=== PATIENT | female | born 1980 | race Two or more races ===

== ENCOUNTER → 2024-12-13 | Outpatient (CLI) | payer MEDICARE, MEDICAID, SELFPAY ==
[2024-12-13 10:11] LABS: Collection Type, Urine Clean Catch
[2024-12-13 10:32] LABS: Basophils % (Auto) 0 % (0-2.5); Eosinophils # (Auto) 0.1 Thou/mm3 (0.0-0.5); Eosinophils % (Auto) 1 % (0-10); Hematocrit 35.7 % (36.0-46.0); Hemoglobin 12.3 g/dL (12.0-16.0); Immature Granulocytes % (Auto) 0 % (0-0); Immature Granulocytes Auto 0.03 Thou/mm3 (0.00-0.00); Lymphocytes # (Auto) 1.8 Thou/mm3 (1.0-4.8); Lymphocytes % (Auto) 23 % (10-50); Mean Corpuscular HGB Conc 34.5 g/dl (31.0-37.0); Mean Corpuscular Hemoglobin 31.4 pg (25.0-35.0); Mean Corpuscular Volume 91 fL (80-100); Monocytes # (Auto) 0.7 Thou/mm3 (0.0-0.8); Monocytes % (Auto) 9 % (0-12); Neutrophils # (Auto) 5.3 Thou/mm3 (1.8-7.7); Neutrophils % (Auto) 67 % (37-80); Nucleated Red Blood Cell % 0 /100 WBC (0); Platelet Count 167 Thou/mm3 (140-440); RDW Standard Deviation 43.1 fL (36.4-46.3); Red Blood Count 3.92 Miln/mm3 (4.00-5.20)
[2024-12-13 10:48] LABS: Albumin, Serum 4.1 gm/dL (3.5-5.0); Anion Gap 11 (7-16); BUN/Creatinine Ratio 15 Ratio (12-20); Blood Urea Nitrogen 17 mg/dL (9-23); Carbon Dioxide 25.2 mMol/L (20.0-31.0); Chloride 103 mMol/L (98-107); Creatinine (Component) 1.1 mg/dL (0.6-1.3); Glucose 158 mg/dL (74-106); Osmolality,Calculated 282 (275-295); Phosphorous 1.4 mg/dL (2.4-5.1); Sodium 139 mMol/L (136-145); eGFR > 60 See Note
[2024-12-13 10:49] LABS: Glucose Estimated Average 258 mg/dL (80-131); Hemoglobin A1C 10.6 % Hgb (4.8-6.0)
[2024-12-13 10:56] LABS: Bacteria,Urine 1+; Bilirubin,Urine Negative (Negative); Blood,Urine Negative (Negative); Clarity,Urine Turbid (Clear/Hazy); Color,Urine Colorless (Lt Yel-Yel); Culture Indicated,Urine Contaminated; Glucose, Urine Negative (Negative); Ketones,Urine Trace (Negative); Leukocyte Esterase,Urine Positive (Negative); Nitrite,Urine Negative (Negative); Protein,Urine Negative (Neg - Trace); RBC,Urine 3 /hpf (0-3); Specific Gravity,Urine 1.006 (1.001-1.035); Squamous Epithelial Cell,Urine 14 /hpf (0-5); Urobilinogen,Urine Negative mg/dL (0.0-1.0); WBC,Urine 3 /hpf (0-5)
[2024-12-20 06:53] LABS: Tacrolimus,highly sensitive* 8.4 mcg/L (5.0-20.0)
== END | disposition home or self-care (01) ==
LOC: COPL 09:43
PROVIDERS: PCP Family Medicine; Referring Provider Internal Medicine Nephrology; Visit Provider Internal Medicine Nephrology
DX: Z94.0 Kidney transplant status (principal); E11.9 Type 2 diabetes mellitus without complications; E83.52 Hypercalcemia
CPT/HCPCS: 36415; 80069; 80197; 81001; 83036; 85025

== ENCOUNTER → 2024-12-26 | Outpatient (CLI) | payer MEDICARE, MEDICAID, SELFPAY ==
[2024-12-26 08:11] LABS: Collection Type, Urine Clean Catch
[2024-12-26 08:38] LABS: Basophils % (Auto) 0 % (0-2.5); Eosinophils # (Auto) 0.1 Thou/mm3 (0.0-0.5); Eosinophils % (Auto) 2 % (0-10); Hematocrit 36.2 % (36.0-46.0); Hemoglobin 12.5 g/dL (12.0-16.0); Immature Granulocytes % (Auto) 1 % (0-0); Immature Granulocytes Auto 0.06 Thou/mm3 (0.00-0.00); Lymphocytes # (Auto) 1.8 Thou/mm3 (1.0-4.8); Lymphocytes % (Auto) 27 % (10-50); Mean Corpuscular HGB Conc 34.5 g/dl (31.0-37.0); Mean Corpuscular Hemoglobin 31.6 pg (25.0-35.0); Mean Corpuscular Volume 91 fL (80-100); Monocytes # (Auto) 0.6 Thou/mm3 (0.0-0.8); Monocytes % (Auto) 10 % (0-12); Neutrophils # (Auto) 4.1 Thou/mm3 (1.8-7.7); Neutrophils % (Auto) 61 % (37-80); Nucleated Red Blood Cell % 0 /100 WBC (0); Platelet Count 192 Thou/mm3 (140-440); RDW Standard Deviation 43.8 fL (36.4-46.3); Red Blood Count 3.96 Miln/mm3 (4.00-5.20); White Blood Count 6.7 Thou/mm3 (3.6-11.0)
[2024-12-26 08:42] LABS: Amorphous Crystals,Urine Present (Absent); Bilirubin,Urine Negative (Negative); Blood,Urine Negative (Negative); Color,Urine Lt-Yellow (Lt Yel-Yel); Glucose, Urine Negative (Negative); Ketones,Urine 1+ (Negative); Leukocyte Esterase,Urine Positive (Negative); Nitrite,Urine Positive (Negative); Protein,Urine Negative (Neg - Trace); RBC,Urine 1 /hpf (0-3); Specific Gravity,Urine 1.018 (1.001-1.035); Squamous Epithelial Cell,Urine 6 /hpf (0-5); Urobilinogen,Urine Negative mg/dL (0.0-1.0); WBC,Urine 10 /hpf (0-5)
[2024-12-26 08:48] LABS: Clarity,Urine Hazy (Clear/Hazy)
[2024-12-26 08:56] LABS: Vitamin D 25 Hydroxy Total 29.3 ng/mL (7.3-40.2)
[2024-12-26 09:00] LABS: Albumin, Serum 4.2 gm/dL (3.5-5.0); Anion Gap 8 (7-16); BUN/Creatinine Ratio 22 Ratio (12-20); Blood Urea Nitrogen 24 mg/dL (9-23); Calcium 10.9 mg/dL (8.3-10.6); Calcium (Corrected) 10.9 mg/dL (8.5-10.1); Carbon Dioxide 25.3 mMol/L (20.0-31.0); Chloride 106 mMol/L (98-107); Creatinine (Component) 1.1 mg/dL (0.6-1.3); Glucose 157 mg/dL (74-106); Osmolality,Calculated 284 (275-295); Phosphorous 2.4 mg/dL (2.4-5.1); Sodium 139 mMol/L (136-145); Thyroid Stimulating Hormone 1.46 uIU/mL (0.55-4.78); eGFR > 60 See Note
[2024-12-26 09:14] LABS: Parathyroid Hormone Intact 88.4 pg/ml (18.5-88.0)
[2024-12-26 10:11] LABS: T4 (Thyroxine) 9.6 mcg/dL (4.5-10.9)
== END | disposition home or self-care (01) ==
LOC: COPL 07:08
PROVIDERS: PCP Family Medicine; Referring Provider Internal Medicine Nephrology; Visit Provider Internal Medicine Nephrology
DX: E55.9 Vitamin D deficiency, unspecified (principal); E11.9 Type 2 diabetes mellitus without complications; E05.90 Thyrotoxicosis, unspecified without thyrotoxic crisis or storm; Z94.0 Kidney transplant status
CPT/HCPCS: 36415; 80069; 81001; 82306; 83970; 84436; 84443; 85025

== ENCOUNTER → 2025-01-29 | Outpatient (CLI) | payer MEDICARE, MEDICAID, SELFPAY ==
[2025-01-29 08:05] LABS: Collection Type, Urine Clean Catch
[2025-01-29 08:35] LABS: Basophils % (Auto) 0 % (0-2.5); Eosinophils # (Auto) 0.2 Thou/mm3 (0.0-0.5); Eosinophils % (Auto) 3 % (0-10); Hematocrit 35.9 % (36.0-46.0); Hemoglobin 12.1 g/dL (12.0-16.0); Immature Granulocytes % (Auto) 0 % (0-0); Immature Granulocytes Auto 0.02 Thou/mm3 (0.00-0.00); Lymphocytes # (Auto) 1.5 Thou/mm3 (1.0-4.8); Lymphocytes % (Auto) 26 % (10-50); Mean Corpuscular HGB Conc 33.7 g/dl (31.0-37.0); Mean Corpuscular Hemoglobin 31.4 pg (25.0-35.0); Mean Corpuscular Volume 93 fL (80-100); Monocytes # (Auto) 0.6 Thou/mm3 (0.0-0.8); Monocytes % (Auto) 9 % (0-12); Neutrophils # (Auto) 3.6 Thou/mm3 (1.8-7.7); Neutrophils % (Auto) 61 % (37-80); Nucleated Red Blood Cell % 0 /100 WBC (0); Platelet Count 196 Thou/mm3 (140-440); RDW Standard Deviation 46.1 fL (36.4-46.3); Red Blood Count 3.85 Miln/mm3 (4.00-5.20); White Blood Count 5.9 Thou/mm3 (3.6-11.0)
[2025-01-29 08:44] LABS: Glucose Estimated Average 174 mg/dL (80-131); Hemoglobin A1C 7.7 % Hgb (4.8-6.0)
[2025-01-29 08:47] LABS: Anion Gap 10 (7-16); BUN/Creatinine Ratio 15 Ratio (12-20); Blood Urea Nitrogen 20 mg/dL (9-23); Calcium 10.1 mg/dL (8.3-10.6); Calcium (Corrected) 10.1 mg/dL (8.5-10.1); Carbon Dioxide 25.9 mMol/L (20.0-31.0); Chloride 105 mMol/L (98-107); Creatinine (Component) 1.3 mg/dL (0.6-1.3); Glucose 167 mg/dL (74-106); Osmolality,Calculated 287 (275-295); Phosphorous 2.5 mg/dL (2.4-5.1); Potassium 4.2 mMol/L (3.4-5.1); Sodium 141 mMol/L (136-145); eGFR 52 See Note
[2025-01-29 08:51] LABS: Bacteria,Urine 1+; Bilirubin,Urine Negative (Negative); Blood,Urine Trace (Negative); Color,Urine Yellow (Lt Yel-Yel); Glucose, Urine 2+ (Negative); Ketones,Urine Negative (Negative); Leukocyte Esterase,Urine Positive (Negative); Nitrite,Urine Negative (Negative); Protein,Urine Trace (Neg - Trace); RBC,Urine 11 /hpf (0-3); Specific Gravity,Urine 1.025 (1.001-1.035); Squamous Epithelial Cell,Urine 2 /hpf (0-5); Urobilinogen,Urine Negative mg/dL (0.0-1.0); WBC,Urine 111 /hpf (0-5)
[2025-01-29 08:59] LABS: Clarity,Urine Hazy (Clear/Hazy)
== END | disposition home or self-care (01) ==
PROVIDERS: PCP Internal Medicine Nephrology; Referring Provider Internal Medicine Nephrology; Visit Provider Internal Medicine Nephrology
DX: E11.9 Type 2 diabetes mellitus without complications (principal); Z94.0 Kidney transplant status
CPT/HCPCS: 36415; 80069; 80197; 81001; 83036; 85025

== ENCOUNTER 2025-02-04 19:00 | Inpatient (IN) | payer MEDICARE, MEDICAID, SELFPAY ==
[2025-02-04 19:02] VITALS: BMI 22.1
[2025-02-04 19:22] VITALS: BP 131/83; PULSE 82; RESP 20; TEMP 36.9; O2SAT 97
--- NOTE | 2025-02-04 19:28 | PD.EDRME ---
Rapid Medical Screening Exam RME Arrival date/time: 02/04/25 19:00 44 yo f present to ED for c/o of llq/rectal pain I have greeted and performed a focused initial assessment of this patient. A comprehensive ED assessment and evaluation of the patient, analysis of all test results, and completion of the medical decision making process will be conducted by additional ED providers. Chief Complaint: Abdominal Pain Time Seen by Provider: 02/04/25 19:11 Vital signs: Vital Signs Temperature 98.4 F 02/04/25 19:22 Pulse Rate 82 02/04/25 19:22 Respiratory Rate 20 02/04/25 19:22 Blood Pressure 131/83 H 02/04/25 19:22 Pulse Oximetry (%) 97 02/04/25 19:22 Oxygen Delivery Method Room Air 02/04/25 19:22
[2025-02-04 19:58] LABS: Basophils % (Auto) 0 % (0-2.5); Eosinophils # (Auto) 0.1 Thou/mm3 (0.0-0.5); Eosinophils % (Auto) 1 % (0-10); Hematocrit 36.4 % (36.0-46.0); Hemoglobin 12.4 g/dL (12.0-16.0); Immature Granulocytes % (Auto) 0 % (0-0); Immature Granulocytes Auto 0.04 Thou/mm3 (0.00-0.00); Lymphocytes # (Auto) 1.3 Thou/mm3 (1.0-4.8); Lymphocytes % (Auto) 10 % (10-50); Mean Corpuscular HGB Conc 34.1 g/dl (31.0-37.0); Mean Corpuscular Hemoglobin 31.9 pg (25.0-35.0); Mean Corpuscular Volume 94 fL (80-100); Monocytes # (Auto) 1.1 Thou/mm3 (0.0-0.8); Monocytes % (Auto) 8 % (0-12); Neutrophils # (Auto) 10.6 Thou/mm3 (1.8-7.7); Neutrophils % (Auto) 81 % (37-80); Nucleated Red Blood Cell % 0 /100 WBC (0); Platelet Count 214 Thou/mm3 (140-440); RDW Standard Deviation 44.6 fL (36.4-46.3); Red Blood Count 3.89 Miln/mm3 (4.00-5.20); White Blood Count 13.1 Thou/mm3 (3.6-11.0)
[2025-02-04 20:19] LABS: Alanine Aminotransferase 93 U/L (10-49); Albumin, Serum 4.5 gm/dL (3.5-5.0); Albumin/Globulin Ratio 1.6 (1.2-2.2); Alkaline Phosphatase 162 U/L (46-116); Anion Gap 9 (7-16); Aspartate Amino Transferase 88 U/L (0-34); BUN/Creatinine Ratio 13 Ratio (12-20); Bilirubin,Total 1.3 mg/dL (0.3-1.2); Blood Urea Nitrogen 16 mg/dL (9-23); Calcium 10.5 mg/dL (8.3-10.6); Calcium (Corrected) 10.5 mg/dL (8.5-10.1); Carbon Dioxide 25.6 mMol/L (20.0-31.0); Chloride 101 mMol/L (98-107); Creatinine (Component) 1.2 mg/dL (0.6-1.3); Estimated Creatinine Clearance 47.8 mL/min (>60); Globulin 2.8 gm/dL (2.3-3.5); Glucose 178 mg/dL (74-106); Lipase 45 U/L (12-53); Osmolality,Calculated 277 (275-295); Potassium 4.4 mMol/L (3.4-5.1); Sodium 136 mMol/L (136-145); Total Protein 7.3 gm/dL (5.7-8.2); eGFR 58 See Note
[2025-02-04 20:33] LABS: Lactate (Lactic Acid) 2.8 mMol/L (0.4-2.0)
[2025-02-04 20:37] LABS: HCG,Qualitative Serum Negative
--- NOTE | 2025-02-04 22:28 | XR_ITS ---
Examination: CT abdomen and pelvis without contrast. Coronal 3-D reconstructions. Sagittal 2-D reconstructions. Date and time of exam:February 04, 2025 10:44 PM Indications: Rectal pain left lower abdominal pain and bloating today, history renal transplant Comparison: November 19, 2021 CTDI: vol (mGy): 6.1 DLP: (mGycm): 315 Technique: Axial images of the abdomen have been obtained, 3 mm slice thickness Intravenous contrast material has not been administered. Low dose protocols were performed. One or more of the following dose reduction techniques were used; automated exposure control, adjustment of the mA and/or KV according to patient size, use of iterative reconstruction technique. Findings: No focal liver or splenic lesions No gallstones No pancreatic or adrenal mass End-stage [place] kidneys Small bowel ileus Abundant stool in the right colon Normal appendix Colonic diverticulosis Acute diverticulitis descending colon Intrauterine device satisfactory position Mild thickening urinary bladder Impression: Acute diverticulitis descending colon, no peridiverticular abscess noted on this noncontrast study
--- NOTE | 2025-02-04 23:08 | PD.EDABDPN ---
ED Abdominal Pain RME/HPI General Chief Complaint: Abdominal Pain Stated complaint: SEVERE RECTAL PAIN, LLQ PAIN, BLOATED Time seen by provider: 02/04/25 19:11 Arrival date/time: 02/04/25 19:00 RME / HPI RME / HPI narrative: 02/04/25 19:00 44 yo f present to ED for c/o of llq/rectal pain I have greeted and performed a focused initial assessment of this patient. A comprehensive ED assessment and evaluation of the patient, analysis of all test results, and completion of the medical decision making process will be conducted by additional ED providers. Dr. Eid's Main ED Evaluation: 44yo female presents to the ED for a chief complaint of rectal pain x yesterday. Patient describes the pain as pulsating in nature. She states today her pain worsened when she was trying to have a bowel movement. Patient also states she started having lower abdominal pain and bloating today. She reports associated nausea. Related Data Home Medications ?Medication ?Instructions ?Recorded ?Confirmed pantoprazole 40 mg granules 40 mg PO QDAY 10/04/18 11/19/21 delayed-release for susp in packet (Protonix) prednisone 5 mg tablet 5 mg PO QDAY 10/04/18 11/19/21 tacrolimus 1 mg capsule, 1 mg PO Q12H 10/04/18 11/19/21 immediate-release (Prograf) gabapentin 300 mg tablet 300 mg PO TID 08/05/20 11/19/21 tacrolimus 1 mg capsule, 2 mg PO Q12H 08/11/20 11/19/21 immediate-release famotidine 20 mg tablet 20 mg PO HS 11/19/21 11/19/21 semaglutide 3 mg tablet 3 mg PO QDAY 11/19/21 11/19/21 Previous Rx's ?Medication ?Instructions ?Recorded meclizine 25 mg chewable tablet 25 mg PO TID #30 tabs 02/01/23 (Antivert) Allergies Allergy/AdvReac Type Severity Reaction Status Date / Time hydrocodone Allergy Mild Rash Verified 02/04/25 19:04 latex Allergy Mild Rash Verified 02/04/25 19:04 povidone-iodine Allergy Mild Rash Verified 02/04/25 19:04 Review of Systems Review of Systems Systems Reviewed: All systems reviewed, normal except as documented Past Medical History Past Medical History NEUROLOGIC: Negative Neurological Disorders or Seizures CARDIAC: Negative Cardiac Disorders or Congestive Heart Failure RESPIRATORY: Negative Chronic Obstructive Pulmonary Disease (COPD), Asthma, Pneumonia, Tuberculosis or Sleep Apnea GASTROINTESTINAL: Positive Gastroesophageal Reflux Disease; Negative Gastrointestinal Disorders or Hepatitis GENITOURINARY: Positive Genitourinary Disorders and Dialysis; Negative Renal Disease REPRODUCTIVE: Positive Previous Pregnancies; Negative Pelvic Inflammatory Disease MUSCULOSKELETAL: Positive Musculoskeletal Disorders, Arthritis and Degenerative Disk Disease ENDOCRINE: Positive Diabetes Mellitus Type 2; Negative Endocrine Disorders or Diabetes Mellitus Type 1 HEMATOLOGIC: Negative Blood Disorders or Sickle Cell Disease OTHER HISTORY: Positive Blood Transfusions, Blood Transfusion Reaction, Organ Transplant and Chicken Pox; Negative Hospitalization, Autoimmune Disease, Shingles, Falls, Anesthesia Reactions, MRSA, Measles, Mumps or Cancer Family History FAMILY HISTORY: Positive Family Surgery and Family Anesthesia Reaction; Negative Family Psychiatric Problems, Family Respiratory Disorders, Family Cardiac Disorders, Family Gastrointestinal Problems or Family Cancer Surgical History SURGICAL: Positive Tubal Ligation, Section and Organ Transplant Social History SMOKING STATUS: Never smoker SUBSTANCE USE: does not use Course Quality Measures none Orders Category Date Time Status CT Screening NOW Care 02/04/25 19:26 Active IV [Insert IV] STAT Care 02/04/25 21:[address] abdomen pelvis wo con Stat Exams 02/04/25 22:28 Taken Blood Culture (Lab) Stat Lab 02/04/25 20:27 Received CBC Stat Lab 02/04/25 19:43 Completed CMP [Comprehensive Metabolic Panel] Stat Lab 02/04/25 19:43 Completed HCG,Qualitative Serum Stat Lab 02/04/25 19:43 Completed Lactic Acid [Lactate (Lactic Acid)] Stat Lab 02/04/25 20:25 Completed Lactic Acid, 3 HR Stat Lab 02/04/25 23:30 Ordered Lipase Stat Lab 02/04/25 19:43 Completed Vital Signs Vital signs: Vital Signs Temperature 98.4 F 02/04/25 19:22 Pulse Rate 82 02/04/25 19:22 Respiratory Rate 20 02/04/25 19:22 Blood Pressure 131/83 H 02/04/25 19:22 Pulse Oximetry (%) 97 02/04/25 19:22 Oxygen Delivery Method Room Air 02/04/25 19:22 Abdominal Pain MDM MDM Narrative MDM Narrative:: Scribe Attestation: 02/04/25 Rocio Monk am scribing for and in the presence of Dr. Eid. 46-year-old with history of renal transplant 3 years ago, GERD, coming to emergency department with difficulty having a bowel movement and feeling pressure in her rectum from 24 hours. Patient denies fevers. While in the emergency department patient had workup to include a white count that was 13. This is reviewed and normal. Hemoglobin and hematocrit are normal at 12 or 36. Reviewed and normal platelets of 214. Of note the lactic acid is 2.8, total bili is 1.3, AST is 88, ALT is 93, alk phos is 162. LFTs are reviewed and this is abnormal. hCG is negative. Patient data External records reviewed:: [facility] previous records (Per chart review, patient was seen here on 02/01/23 for vertigo.) Clinical information provided by:: patient Social determinants that could affect healthcare access:: none Patient has the following chronic illnesses:: DM, renal transplant How is presenting disease/condition affected by chronic disease/condition?: uneffected by Evaluation data The following diagnostics were reviewed and interpreted by me:: lab results and radiology exam(s) Lab and/or radiology exams considered but not ordered:: none Interpretation Summary: [facility] Preliminary Report Draft Patient: MARCELINO CHAIDEZ. Record#: [id number] Birthdate: 1980 Age/Sex: 44 / F Location: [facility] Attending Dr: Ordering Physician: Date of Service: Procedure(s): Accession Number(s): cc: ~ CT scan of the abdomen and pelvis without intravenous contrast (axial sections with sagittal and coronal reformats) February 04, 2025 at 2244 hours Clinical History: LLQ/rectal pain. Comparison: None available at the time of this report. Findings: The lung bases are clear. The liver, gallbladder, pancreas, spleen and adrenals are unremarkable on this noncontrast study. No evidence of bowel obstruction. The appendix is within normal limits. There is no mesenteric or retroperitoneal adenopathy. The urinary bladder is unremarkable. There is no free fluid or free air. The osseous structures are unremarkable. The uterus and ovaries are within normal limits. IUD noted in place. Hypotrophic bilateral [place] kidneys. Transplanted kidney in the right lower quadrant, normal-appearing. Diverticulosis of the colon. Focal thickening of the proximal sigmoid colon associated with peripheral fat stranding, no perforation, no collections. Impression: Acute diverticulitis of the sigmoid colon. Report Electronically Signed By: Cristopher Alcaraz 02/04/2025 11:43:32 PM Medications / Prescriptions Medications or Prescriptions considered but not ordered:: none Consultations Consultation(s) initiated? (list below): No Diagnosis Differential diagnosis abdominal pain: constipation, diverticulitis and other (hemorrhoids, intra-abdominal infection) Most likely diagnosis given after review of the tests above:: see clinical impression below Discharge Plan Prescriptions/Referrals Prescriptions/Med Rec: No Action prednisone 5 mg Tablet 5 mg PO QDAY tacrolimus [Prograf] 1 mg Capsule 1 mg PO Q12H Rx Instructions: 0900 & 2100 pantoprazole [Protonix] [address] For Susp In Packet 40 mg PO QDAY famotidine 20 mg Tablet 20 mg PO HS semaglutide 3 mg Tablet 3 mg PO QDAY gabapentin 300 mg Tablet 300 mg PO TID tacrolimus 1 mg Capsule 2 mg PO Q12H meclizine [Antivert] 25 mg tablet,chewable 25 mg PO TID Qty: 30 0RF Rx Instructions: As needed vertigo Referrals: No Primary/Family,Physician [Primary Care Provider] - In 1 week Patient/Caregiver Discharge Instructions Print Language: [place]an
[2025-02-04 23:30] LABS: Reflex Lactate? Y
--- NOTE | 2025-02-04 23:44 | PRELIM_ITS ---
CT scan of the abdomen and pelvis without intravenous contrast (axial sections with sagittal and coronal reformats) February 04, 2025 at 2244 hours Clinical History: LLQ/rectal pain. Comparison: None available at the time of this report. Findings: The lung bases are clear. The liver, gallbladder, pancreas, spleen and adrenals are unremarkable on this noncontrast study. No evidence of bowel obstruction. The appendix is within normal limits. There is no mesenteric or retroperitoneal adenopathy. The urinary bladder is unremarkable. There is no free fluid or free air. The osseous structures are unremarkable. The uterus and ovaries are within normal limits. IUD noted in place. Hypotrophic bilateral [place] kidneys. Transplanted kidney in the right lower quadrant, normal-appearing. Diverticulosis of the colon. Focal thickening of the proximal sigmoid colon associated with peripheral fat stranding, no perforation, no collections. Impression: Acute diverticulitis of the sigmoid colon. Report Electronically Signed By: Cristopher Alcaraz 02/04/2025 11:43:32 PM [EST]
[2025-02-04 23:58] VITALS: BP 137/95; PULSE 82; RESP 16; O2SAT 100
[2025-02-05] VITALS (7 sets, daily range): BP systolic 108–136; BP diastolic 73–94; PULSE 71–78; RESP 14–20; TEMP 36.3–37.2; O2SAT 96–99
[2025-02-05 00:05] LABS: Lactic Acid, 3 HR 3.3 mMol/L (0.4-2.0)
[2025-02-05] MEDS: PIPER/TAZO INJ 3.375 GM in SODIUM CHLORIDE 0.9% (Popper) 50 ML IV (01:27)
[2025-02-05] MEDS: SODIUM CHLORIDE 0.9% 1000 ML 1,000 ML 75 ML IV (01:52)
[2025-02-05] MEDS: SODIUM CHLORIDE 0.9% 1000 ML 1,503 ML 1503 ML IV (01:52)
--- NOTE | 2025-02-05 02:01 | PD.RESHP ---
Documentation for date of: 02/05/25 HPI History of Present Illness History of present illness: The patient is a 44-year-old female with past medical history significant for renal transplant 7 years ago, diabetes mellitus type 2 and hemorrhoids presented to ED on 02/04/2025 with chief complaint of lower abdominal pain for 1 day. The patient reported her pain being 10/10 in intensity, pulsating in nature, associated with anal opening swelling. Her intensity of pain decreased to 4/10 after taking some pain medicine. She denied any headache, nausea or vomiting, chest pain, SOB, fever or chills. She also denied any blood per rectum, dark stool or hard stool. She reported her last bowel movement was yesterday, and it was soft, but little. She was admitted to hospital 2 years ago with similar complaints and was found to have diverticulitis. In the ED her vitals were significant for blood pressure 131/83, pulse 82, RR 20, temperature 98.4 and saturating 97% on room air. Labs revealed white count 13.1, creatinine 1.2, GFR 58, blood sugar 178, lactic acid 2.8 that trended up to 3.3, AST/ALT 88/93, total bilirubin 1.3 and corrected calcium 10.5. Abdomen/pelvis CT showed acute diverticulitis of the sigmoid colon. The patient was given about 1.5 L IV normal saline bolus and 1 dose of 3.375 g of Zosyn IV. The patient was admitted to MedSurg unit for further management of acute diverticulitis. PMH: As mentioned above SHX: 2 section, renal transplant around 2018, fistula placed in the past of her left arm Family history: Unremarkable Social history: Denies any alcohol, smoking or illicit drug use Medications: To be reconciled Allergies: Hydrocodone, latex and povidone iodine; all gives a rash Review of Systems Review of Systems Systems Reviewed: All systems reviewed, normal except as documented Exam Vital Signs Temp Pulse Resp BP Pulse Ox O2 Del Method 98.4 F 75 19 136/94 H 99 Room Air 02/05/25 01:20 02/05/25 01:20 02/05/25 01:20 02/05/25 01:20 02/05/25 01:20 02/05/25 01:20 Narrative Exam General: Middle-aged, cooperative lady, no acute distress, Alert and Oriented x 3 HEENT: Moist mucous membranes, oropharynx clear Neck: Supple, No masses, No JVD CVS: S1S2 Regular rate and rhythm, No murmurs, rubs or gallops Lungs: Clear to auscultation with no accessory use, no wheeze no rhonchi Abd: Soft, nondistended, tenderness over left lower quadrant, BS present Ext: No edema, warm and well perfused Skin: No rash Psych: Appropriate mood and affect Results: Labs 02/05/25 02:32 02/04/25 19:43 Labs: Short CBC 02/04/25 Range/Units 19:43 WBC 13.1 H D (3.6-11.0) Thou/mm3 Hgb 12.4 (12.0-16.0) g/dL Hct 36.4 (36.0-46.0) % Plt Count 214 (140-440) Thou/mm3 BMP 02/04/25 19:43 Sodium 136 Potassium 4.4 Chloride 101 Carbon Dioxide 25.6 BUN 16 Creatinine 1.2 Glucose 178 H Calcium 10.5 Liver Function 02/04/25 Range/Units 19:43 Total Bilirubin 1.3 H (0.3-1.2) mg/dL AST 88 H (0-34) U/L ALT 93 H (10-49) U/L Alkaline Phosphatase 162 H (46-116) U/L Albumin 4.5 (3.5-5.0) gm/dL Quality Measures Quality Measures none Medications Home Medications and Allergies Home Medications ?Medication ?Instructions ?Recorded ?Confirmed ?Type prednisone 5 mg tablet 5 mg PO QDAY 10/04/18 02/05/25 History tacrolimus 1 mg capsule, 3 mg PO Q12H 08/11/20 02/05/25 History immediate-release cinacalcet 30 mg tablet 30 mg PO QDAY 02/05/25 02/05/25 History magnesium 2 tab PO BID 02/05/25 02/05/25 History magnesium 100 mg tablet 400 mg PO QDAY 02/05/25 02/05/25 History metformin 500 mg tablet 500 mg PO BID 02/05/25 02/05/25 History sitagliptin phosphate 50 mg tablet 50 mg PO QDAY 02/05/25 02/05/25 History (Januvia) sodium bicarbonate 650 mg tablet 650 mg PO BID 02/05/25 02/05/25 History Allergies Allergy/AdvReac Type Severity Reaction Status Date / Time hydrocodone Allergy Mild Rash Verified 02/04/25 19:04 latex Allergy Mild Rash Verified 02/04/25 19:04 povidone-iodine Allergy Mild Rash Verified 02/04/25 19:04 Visit Medications Acetaminophen (Acetaminophen 325 Mg Tablet) 650 mg PO Q6H PRN PRN Reason: Fever >101.5 Stop: 03/07/25 01:42 Acetaminophen (Acetaminophen 325 Mg Tablet) 650 mg PO Q6H PRN PRN Reason: PAIN SCALE 1-3 (mild Stop: 03/07/25 01:42 Dextrose (Dextrose 50%-Water Inj 50 Ml Syringe) 25 ml IV Q15MIN PRN PRN Reason: BG 50-70 responsive npo pt Stop: 03/07/25 01:52 Dextrose (Dextrose 50%-Water Inj 50 Ml Syringe) 50 ml IV Q15MIN PRN PRN Reason: BG <50 OR BG <70 & pt unresponsive Stop: 03/07/25 01:52 Glucagon (Glucagon Inj 1 Mg Vial) 1 mg IM Q15MIN PRN PRN Reason: BG <70, and no IV access Hydromorphone HCl (Hydromorphone Inj 2 Mg/Ml Vial) 0.5 mg IVP Q2H PRN PRN Reason: PAIN SCALE 7-10 (Severe Stop: 02/10/25 01:42 Sodium Chloride (Ns) 1,503 mls @ 1,503 mls/hr 30 ml/kg infuse over 60 min (1503 ml) IV .Q1H ONE Stop: 02/05/25 02:16 Last Admin: 02/05/25 01:52 Dose: 1,503 mls/hr Sodium Chloride (Ns) 1,000 mls @ 75 mls/hr IV .[id number] EDITH Stop: 03/07/25 01:44 Last Admin: 02/05/25 01:52 Dose: 75 mls/hr Ciprofloxacin/Dextrose (Cipro Ivpb) 400 mg in 200 mls @ 200 mls/hr IV BID EDITH Stop: 02/12/25 08:59 Metronidazole (Flagyl 500 Mg Iv) 500 mg in 100 mls @ 200 mls/hr IV Q8HR EDITH Stop: 02/12/25 08:59 Insulin Human Lispro (Insulin Lispro (Admelog) 1 Unit/0.01 Ml Unit) 0 unit SC AC [facility]; Protocol Stop: 03/07/25 07:29 Lactulose (Lactulose Syrup 20 Gm/30 Ml Udc) 10 gm PO BID [facility]; Protocol Stop: 03/07/25 08:59 Non-Formulary Medication (Prograf) 3 mg PO BID EDITH Stop: 03/07/25 08:59 Ondansetron HCl (Ondansetron Inj 2 Mg/Ml Inj 2 Ml) 4 mg IV Q6H PRN; Protocol PRN Reason: NAUSEA OR VOMITING Stop: 03/07/25 01:42 Oxycodone/Acetaminophen (Oxycodone/Apap 5/325 Tablet) 1 tab PO Q6HR PRN PRN Reason: PAIN SCALE 4-6 (Moderate Stop: 02/10/25 01:47 Prednisone (Prednisone 5 Mg Tablet) 5 mg PO QDAY EDITH Stop: 03/07/25 08:59 Discontinued Medications Hydrocodone Bitart/Acetaminophen (Hydrocodone/Apap 5/325 Tablet) 1 tab PO Q4HR PRN PRN Reason: PAIN SCALE 4-6 (Moderate Stop: 02/10/25 01:42 Piperacillin Sod/Tazobactam (Sod 3.375 gm/ Sodium Chloride) 50 mls @ 100 mls/hr IV X1 ONE Stop: 02/05/25 01:44 Last Infusion: 02/05/25 02:01 Dose: Infused Assessment & Plan Plan The patient is a 44-year-old female with past medical history significant for renal transplant 7 years ago, diabetes mellitus type 2 and hemorrhoids presented to ED on 02/04/2025 with chief complaint of lower abdominal pain for 1 day. The patient was admitted to Medr unit for further management of acute diverticulitis. #Acute diverticulitis Patient presented with left lower quadrant abdominal pain for 1 day, associated with anal opening swelling. The patient has history of diverticulitis 2 years ago. Physical exam was significant for severe tenderness over left lower quadrant. White count 13.1, lactic acid 2.8 that trended up to 3.3, total bilirubin 1.3 but no right upper quadrant pain and Aguirre sign negative CT abdomen and pelvis showed acute diverticulitis of the sigmoid colon Patient received 1.5 L IV normal saline bolus and 3.37 g IV Zosyn in the ED - Started patient on IV ciprofloxacin and Flagyl - Clear liquid diet, renal; gradually progressed to low fiber diet and then to high-fiber diet - Started on IV normal saline maintenance fluids 75 cc/h - Pain management - Daily a.m. labs for CBC, CMP and electrolytes #S/p renal transplant Patient has had renal transplant 6 to 7 years ago - Started on tacrolimus 3 mg twice daily - Prednisone 5 Mg daily #Diabetes mellitus type 2 Patient is taking metformin 500 Mg daily and Januvia 50 Mg daily - Started on sliding scale insulin lispro AC along with fingerstick glucose checks - A1c ordered Health maintenance: Dispo: Patient admitted to MedSurg unit for further management of acute diverticulitis Diet: Clear liquid diet, renal; advance as tolerated DVT prophylaxis: SCDs CODE STATUS: Full code The patient's management plan was discussed with my attending physician MD Carlos Hawthorne MD, PGY2 Attending Provider Attestation/Addendum Pt was evaluated and plan formulated together with the housestaff team. I have reviewed the residents note above and agree with most of its content. Please refer to the residents note for additional details.
[2025-02-05 03:30] LABS: Basophils % (Auto) 0 % (0-2.5); Eosinophils # (Auto) 0.2 Thou/mm3 (0.0-0.5); Eosinophils % (Auto) 2 % (0-10); Hematocrit 32.9 % (36.0-46.0); Hemoglobin 11.2 g/dL (12.0-16.0); Immature Granulocytes % (Auto) 0 % (0-0); Immature Granulocytes Auto 0.03 Thou/mm3 (0.00-0.00); Lymphocytes # (Auto) 1.4 Thou/mm3 (1.0-4.8); Lymphocytes % (Auto) 15 % (10-50); Mean Corpuscular Hemoglobin 31.3 pg (25.0-35.0); Mean Corpuscular Volume 92 fL (80-100); Monocytes # (Auto) 0.8 Thou/mm3 (0.0-0.8); Monocytes % (Auto) 8 % (0-12); Neutrophils # (Auto) 7.1 Thou/mm3 (1.8-7.7); Neutrophils % (Auto) 75 % (37-80); Nucleated Red Blood Cell % 0 /100 WBC (0); Platelet Count 169 Thou/mm3 (140-440); RDW Standard Deviation 43.7 fL (36.4-46.3); Red Blood Count 3.58 Miln/mm3 (4.00-5.20); White Blood Count 9.5 Thou/mm3 (3.6-11.0)
[2025-02-05 03:31] LABS: Lactate (Lactic Acid) 2.4 mMol/L (0.4-2.0)
[2025-02-05] MEDS: oxyCODONE/APAP 5/325 TABLET 1 TAB PO (03:37)
[2025-02-05 04:03] LABS: Glucose Estimated Average 163 mg/dL (80-131); Hemoglobin A1C 7.3 % Hgb (4.8-6.0)
[2025-02-05 04:41] LABS: Alanine Aminotransferase 73 U/L (10-49); Albumin, Serum 3.9 gm/dL (3.5-5.0); Albumin/Globulin Ratio 1.5 (1.2-2.2); Alkaline Phosphatase 140 U/L (46-116); Anion Gap 12 (7-16); Aspartate Amino Transferase 55 U/L (0-34); BUN/Creatinine Ratio 14 Ratio (12-20); Bilirubin,Total 1.4 mg/dL (0.3-1.2); Blood Urea Nitrogen 14 mg/dL (9-23); Calcium (Corrected) 9.1 mg/dL (8.5-10.1); Carbon Dioxide 21.1 mMol/L (20.0-31.0); Cardiac Risk Estimate 2.5 RATIO (3.7-5.6); Chloride 107 mMol/L (98-107); Cholesterol 160 mg/dL (132-200); Estimated Creatinine Clearance 57.4 mL/min (>60); Globulin 2.6 gm/dL (2.3-3.5); Glucose 144 mg/dL (74-106); HDL Cholesterol 64 mg/dL (40-60); LDL Cholesterol,Calculated 61 mg/dL (0-130); Magnesium 1.4 mg/dL (1.6-2.6); Osmolality,Calculated 282 (275-295); Potassium 3.8 mMol/L (3.4-5.1); Sodium 140 mMol/L (136-145); Thyroid Stimulating Hormone 1.43 uIU/mL (0.55-4.78); Total Protein 6.5 gm/dL (5.7-8.2); Triglycerides 173 mg/dL (30-150); eGFR > 60 See Note
[2025-02-05 06:28] LABS: Reflex Lactate? Y
[2025-02-05 07:24] LABS: Lactate (Lactic Acid) 1.5 mMol/L (0.4-2.0)
[2025-02-05] MEDS: metroNIDAZOLE/NS 500 MG IVPB 500 MG/100 ML BAG 200 MG IV (09:00)
[2025-02-05] MEDS: CIPROFLOXACIN/D5w 400 MG IVPB 400 MG/200 ML BAG 200 MG IV (09:53)
[2025-02-05 09:55] LABS: Lactate (Lactic Acid) 3.4 mMol/L (0.4-2.0)
--- NOTE | 2025-02-05 10:23 | PC.NURSE ---
I RECEIVED A CALL FROM [facility] REGARDING RX WRITTEN BY DR BELCHER BUT THE DIRECTIONS WERE NOT CLEAR, RX WRITTEN FOR AUGMENTIN BUT INSTRUCTIONS STATE SHE IS ALLERGIC TO MEDICATION. ALLERGY TO AUGMENTIN NOT LISTED ON ALLERGIES HERE IN OUR SYSTEM. UNSURE IF THIS IS A TRUE ALLERGY OR MISTAKE IN DOCUMENTATION BY PROVIDER. DR BELCHER NOT AVAILABLE SINCE SHE WORKED [employer]. PT ENDED UP BEING ADMITTED TO THE HOSPITAL SO I CONTACTED PRIMARY NURSE LET HER KNOW THE SITUATION AND THAT I CANCELLED RX DUE TO INACCURACIES AND SINCE THE PT WAS ADMITTED THERE IS A POSSIBILITY THAT RX MAY CHANGE AFTER FURTHER WORKUP.
[2025-02-05] MEDS: INSULIN LISPRO (AdmeLOG) 1 UNIT/0.01 ML UNIT SC ×2 (11:25→17:19)
[2025-02-05] MEDS: SODIUM CHLORIDE 0.9% 1000 ML 1,000 ML 125 ML IV ×2 (11:28→22:21)
[2025-02-05 12:52] LABS: Reflex Lactate? Y
[2025-02-05 13:33] LABS: Lactic Acid, 3 HR 5.1 mMol/L (0.4-2.0)
--- NOTE | 2025-02-05 13:37 | ESPR_ITS ---
<Statement entered by Damaris Muñoz MD - 02/09/25 12:57> I reviewed above note and agree with findings and plans. I have also personally examined the patient with medicine team and went over assessment and plan with medical team including application development intern and resident physician. <Statement entered by Fallon Morillo MD - 02/05/25 15:12> Patient with history ofrenal transplant 7 years ago, on mmunosuppressive therapy, history of diabetes type 2 on metformin presented to ED due to complaint of left lower abdominal pain. On presentation patient found to have a leukocytosis, lactic acid was slightly elevated, CT abdomen/pelvis without contrast revealed acute diverticulitis, negative for perforation/abscess. Patient was admitted for further treatment and management. Patient was started on ciprofloxacin with metronidazole, cultures were obtained, patient started on clear liquid diet. However after afternoon labs revealed worsening of lactic acidosis, fluid rate was increased, patient has a Hx of renal transplant history, will avoid any contrast CT at this time, surgery was consulted, will continue fluid resuscitation and antibiotics, keep npo, will trend lactic acidosis. Physical exam is benign, mild rebound tenderness in the left lower quadrant, with risk of acute peritonitis at this time, well-appearing, surgery was consulted, will follow-up with recommendations. I personally saw and examined the patient and discussed the assessment and plan with the entire medicine team, including my attending Fallon Morillo M.D. PGY-2 Disclaimer: Despite multiple revisions, due to the dictation software being used, the document bellow may not be free of grammatical errors including phonetic/typographic errors. However, this does not deter from our commitment to providing health care in the patient's best interest in mind. Documentation for date of: 02/05/25 Subjective Subjective Interval history: No overnight events. Patient seen and examined at bedside, resting comfortably. Patient expresses 3/10 abdominal pain, worse with movement. Patient denies fevers, chills, chest pain, shortness of breath, nausea, vomiting, weakness, fatigue, constipation. Will trend lactate, providing IVF. Continue antibiotics. Surgery consulted, follow-up recommendations per Exam Vital Signs Temp Pulse Resp BP Pulse Ox O2 Del Method 97.5 F 76 14 113/84 96 Room Air 02/05/25 12:00 02/05/25 12:02/05/25 12:25 12:00 02/05/25 12:00 02/05/25 12:00 Narrative Exam PE: Gen: Well-developed and well-nourished. HEENT: NCAT, PERRLA, EOMI, MMM, anicteric conjunctivae. CVS: normal S1 and S2. RRR. No M/R/G. Resp: CTA B/L. No rhonchi, rales, crackles or wheezing. Abd: soft. Bilateral lower quadrant tenderness. Surgical scar right lower quadrant. MSK: Good ROM in BUE & BLE. No edema or rash. Neuro: CN II-XII grossly intact. Strength 5/5 in BUE & BLE. Alert and oriented x3. Psych: appropriate mood and affect. Objective Labs 02/05/25 02:32 02/05/25 14:21 Labs: Laboratory Results - last 24 hr 02/04/25 02/04/25 02/04/25 19:43 20:25 23:58 WBC 13.1 H D RBC 3.89 L Hgb 12.4 Hct 36.4 MCV 94 MCH 31.9 MCHC 34.1 RDW Std Deviation 44.6 Plt Count 214 Neut % (Auto) 81 H Lymph % (Auto) 10 Hyde % (Auto) 8 Eos % (Auto) 1 Baso % (Auto) 0 Neut # (Auto) 10.6 H Lymph # (Auto) 1.3 Hyde # (Auto) 1.1 H Eos # (Auto) 0.1 Baso # (Auto) 0.0 Immature Gran # (Auto) 0.04 H Absolute Nucleated RBC 0.00 Immature Gran % 0 Nucleated RBC % 0 Sodium 136 Potassium 4.4 Chloride 101 Carbon Dioxide 25.6 Anion Gap 9 BUN 16 Creatinine 1.2 Estim Creat Clear Calc 47.8 L eGFR 58 L BUN/Creatinine Ratio [address] Glu mg/dL Hemoglobin A1c Calculated Osmolality 277 Lactic Acid 2.8 H 3.3 H Calcium 10.5 Corrected Calcium 10.5 H Magnesium Total Bilirubin 1.3 H AST 88 H ALT 93 H Alkaline Phosphatase 162 H Total Protein 7.3 Albumin 4.5 Globulin 2.8 Albumin/Globulin Ratio 1.6 Triglycerides Cholesterol LDL Cholesterol, Calc HDL Cholesterol Cholesterol/HDL Ratio Lipase 45 TSH HCG, Qual Negative 02/05/25 02/05/25 02/05/25 02:32 07:12 09:26 WBC 9.5 RBC 3.58 L Hgb 11.2 L Hct 32.9 L MCV 92 MCH 31.3 MCHC 34.0 RDW Std Deviation 43.7 Plt Count 169 D Neut % (Auto) 75 Lymph % (Auto) 15 Hyde % (Auto) 8 Eos % (Auto) 2 Baso % (Auto) 0 Neut # (Auto) 7.1 Lymph # (Auto) 1.4 Hyde # (Auto) 0.8 Eos # (Auto) 0.2 Baso # (Auto) 0.0 Immature Gran # (Auto) 0.03 H Absolute Nucleated RBC 0.00 Immature Gran % 0 Nucleated RBC % 0 Sodium 140 Potassium 3.8 D Chloride 107 Carbon Dioxide 21.1 Anion Gap 12 BUN 14 Creatinine 1.0 Estim Creat Clear Calc 57.4 L eGFR > 60 BUN/Creatinine Ratio [address]ucose [address] Glu mg/dL 163 H Hemoglobin A1c 7.3 H Calculated Osmolality 282 Lactic Acid 2.4 H 1.5 3.4 H Calcium 9.0 D Corrected Calcium 9.1 Magnesium 1.4 L Total Bilirubin 1.4 H AST 55 H ALT 73 H Alkaline Phosphatase 140 H D Total Protein 6.5 Albumin 3.9 D Globulin 2.6 Albumin/Globulin Ratio 1.5 Triglycerides 173 H Cholesterol 160 LDL Cholesterol, Calc 61 HDL Cholesterol 64 H Cholesterol/HDL Ratio 2.5 L Lipase TSH 1.43 HCG, Qual 02/05/25 13:08 WBC RBC Hgb Hct MCV MCH MCHC RDW Std Deviation Plt Count Neut % (Auto) Lymph % (Auto) Hyde % (Auto) Eos % (Auto) Baso % (Auto) Neut # (Auto) Lymph # (Auto) Hyde # (Auto) Eos # (Auto) Baso # (Auto) Immature Gran # (Auto) Absolute Nucleated RBC Immature Gran % Nucleated RBC % Sodium Potassium Chloride Carbon Dioxide Anion Gap BUN Creatinine Estim Creat Clear Calc eGFR BUN/Creatinine Ratio Glucose Estimated Ave Glu mg/dL Hemoglobin A1c Calculated Osmolality Lactic Acid 5.1 H* Calcium Corrected Calcium Magnesium Total Bilirubin AST ALT Alkaline Phosphatase Total Protein Albumin Globulin Albumin/Globulin Ratio Triglycerides Cholesterol LDL Cholesterol, Calc HDL Cholesterol Cholesterol/HDL Ratio Lipase TSH HCG, Qual Quality Measures Quality Measures VTE prophylaxis Assessment & Plan Assessment Current Active Medications: Generic Name Dose Route Start Last Admin Trade Name Freq PRN Reason Stop Dose Admin Acetaminophen 650 mg 02/05/25 01:43 Acetaminophen 325 Mg Tablet PO 03/07/25 01:42 Q6H PRN Fever >101.5 Acetaminophen 650 mg 02/05/25 01:43 Acetaminophen 325 Mg Tablet PO 03/07/25 01:42 Q6H PRN PAIN SCALE 1-3 (mild Tacrolimus 1 Mg 0 ea 02/05/25 21:00 PO 03/07/25 20:59 BID EDITH Dextrose 25 ml 02/05/25 01:53 Dextrose 50%-Water Inj 50 Ml Syringe IV 03/07/25 01:52 Q15MIN PRN BG 50-70 responsive npo pt Dextrose 50 ml 02/05/25 01:53 Dextrose 50%-Water Inj 50 Ml Syringe IV 03/07/25 01:52 Q15MIN PRN BG <50 OR BG <70 & pt unresponsive Glucagon 1 mg 02/05/25 01:53 Glucagon Inj 1 Mg Vial IM Q15MIN PRN BG <70, and no IV access Hydromorphone HCl 0.5 mg 02/05/25 01:43 Hydromorphone Inj 2 Mg/Ml Vial IVP 02/10/25 01:42 Q2H PRN PAIN SCALE 7-10 (Severe Ciprofloxacin/Dextrose 400 mg in 200 mls @ 200 mls/hr 02/05/25 09:00 02/05/25 09:53 Cipro Ivpb IV 02/12/25 08:59 200 mls/hr BID EDITH Administration Metronidazole 500 mg in 100 mls @ 200 mls/hr 02/05/25 09:00 02/05/25 09:00 Flagyl 500 Mg Iv IV 02/12/25 08:59 200 mls/hr Q8HR EDITH Administration Sodium Chloride 1,000 mls @ 125 mls/hr 02/05/25 10:42 02/05/25 11:28 Ns IV 03/07/25 10:41 125 mls/hr .Q8H EDITH Administration Insulin Human Lispro 0 unit 02/05/25 07:30 02/05/25 11:25 Insulin Lispro (Admelog) 1 Unit/0.01 Ml Unit SC 03/07/25 07:29 1 unit AC EDITH Administration Protocol Lactulose 10 gm 02/05/25 09:00 02/05/25 09:02 Lactulose Syrup 20 Gm/30 Ml Udc PO 03/07/25 08:59 Not Given BID [facility] Protocol Ondansetron HCl 4 mg 02/05/25 01:43 Ondansetron Inj 2 Mg/Ml Inj 2 Ml IV 03/07/25 01:42 Q6H PRN NAUSEA OR VOMITING Protocol Oxycodone/Acetaminophen 1 tab 02/05/25 01:48 02/05/25 03:37 Oxycodone/Apap 5/325 Tablet PO 02/10/25 01:47 1 tab Q6HR PRN Administration PAIN SCALE 4-6 (Moderate Prednisone 5 mg 02/05/25 09:00 02/05/25 09:02 Prednisone 5 Mg Tablet PO 03/07/25 08:59 Not Given QDAY EDITH Plan 44-year-old female with past medical history significant for renal transplant 7 years ago, diabetes mellitus type 2 and hemorrhoids presented to ED on 02/04/2025 with chief complaint of lower abdominal pain for 1 day. [facility] management of acute diverticulitis. #Acute diverticulitis #Lactic acidosis Patient presented with left lower quadrant abdominal pain for 1 day, associated with anal opening swelling. The patient has history of diverticulitis 2 years ago. Physical exam was significant for severe tenderness over left lower quadrant. White count 13.1, lactic acid 2.8 that trended up to 3.3, total bilirubin 1.3 but no right upper quadrant pain and Aguirre sign negative. CT abdomen and pelvis showed acute diverticulitis of the sigmoid colon. Patient received 1.5 L IV normal saline bolus and 3.37 g IV Zosyn in the ED. Patient was transitioned to ciprofloxacin and Flagyl, appeared to be doing well but had significant increase in lactic acidosis from 1.5-5.1. - Zosyn 3.375 g IV every 8 hours (started 02/04) - IVF: Normal saline 125 mL/h - Pain management - Daily a.m. labs for CBC, CMP and electrolytes - General Surgery consulted, follow-up - Trend lactic acid every 3 hours #S/p renal transplant Patient has had renal transplant 6 to [address] Dominguez at [facility]. - Started on tacrolimus 3 mg twice daily - Prednisone 5 Mg daily #Diabetes mellitus type 2 Patient is taking metformin 500 Mg daily and Januvia 50 Mg daily. A1c 7.3%. - Started on sliding scale insulin lispro AC along with fingerstick glucose checks Diet: N.p.o. pending surgical consult DVT prophylaxis: SCDs CODE STATUS: Full code Lines: Peripheral IV Plan of care discussed with senior resident Dr. Morillo PGY-[address] Muñoz. Oscar Huizar MD PGY?1
--- NOTE | 2025-02-05 13:38 | PC.NURSE ---
DR. LOONEY, DR. CARNES AT BEDSIDE ASSESSING PATIENT
--- NOTE | 2025-02-05 14:09 | XR_ITS ---
Examination: Abdomen AP single view Technique: AP portable supine abdomen, single view Exam date and time: February 05, 2025 1418 hours INDICATIONS: Abdominal pain beginning 2 days ago. FINDINGS: Moderate stool throughout the colon No obstruction No free air Intrauterine device upper left pelvis IMPRESSION: Moderate stool throughout the colon
[2025-02-05] MEDS: Magnesium Sulfate 2 GM Ivpb 2 GM/50 ML BAG IV (14:25)
[2025-02-05 14:51] LABS: Albumin, Serum 3.7 gm/dL (3.5-5.0); Anion Gap 13 (7-16); BUN/Creatinine Ratio 13 Ratio (12-20); Blood Urea Nitrogen 13 mg/dL (9-23); Calcium 8.2 mg/dL (8.3-10.6); Calcium (Corrected) 8.4 mg/dL (8.5-10.1); Carbon Dioxide 20.6 mMol/L (20.0-31.0); Chloride 105 mMol/L (98-107); Estimated Creatinine Clearance 57.4 mL/min (>60); Glucose 206 mg/dL (74-106); Osmolality,Calculated 283 (275-295); Phosphorous 2.6 mg/dL (2.4-5.1); Potassium 4.2 mMol/L (3.4-5.1); Sodium 139 mMol/L (136-145); eGFR > 60 See Note
--- NOTE | 2025-02-05 14:54 | PC.SS ---
Rosita Cobos is 44-year-old female admitted to Med-Surg for Pain ABD. SS conducted bedside contact with the patient to complete initial assessment and to discuss discharge planning.? Patient confirmed demographic information. Patient identifies her dtr Erin Butler [phone] as her surrogate decision maker. Patient resides at home with her mother and kids. Pt states she is typically able to complete all ADL?s independently, no need for any source of DME. Pts PCP is DYLAN unaware of Dr name and her pharmacy of choice is [facility] [address]. DC options discussed, pt wishes to return home. Pts mother will provide transportation upon DC. No further intervention required at this time, social work administrator would be available to address any further concerns. DC Plan: Home Contact: Erin Butler [phone] PCP: ANTONIO
--- NOTE | 2025-02-05 15:16 | PC.SS ---
Rounding: on IV ABX and IV Fluids
[2025-02-05 15:19] LABS: O2 Saturation, Venous 96 % (96-97); PCO2, Venous 34 mmHg (36-56); PO2, Venous 74 mmHg (15-58); pH, Venous 7.43 (7.33-7.66)
[2025-02-05 15:20] LABS: Base Excess, Venous -2 (-3-3)
[2025-02-05 16:58] LABS: Lactate (Lactic Acid) 2.7 mMol/L (0.4-2.0)
[2025-02-05] MEDS: PIPER/TAZO 3.375 GM PREMIX 3.375 GM/50 ML BAG IV ×2 (16:59→22:27)
--- NOTE | 2025-02-05 18:42 | PD.SURCONS ---
HPI Consult details Consult date: 02/05/25 Reason for consultation narrative: Patient was seen in consultation because of diverticulitis of the sigmoid colon History of present illness: History of present illness revealed the patient has been sick for couple of days and came to the emergency room with abdominal pain in the lower quadrant of the abdomen. She did not have any nausea or vomiting and she has been having bowel movements. She described the pain as very severe and it was controlled after giving pain medicine. She had a similar episode in 2021 and she was told that she had diverticulitis but she has been doing reasonably well. Patient has a history of diabetes mellitus and she had undergone renal transplant in 2018 at [facility]. She is on immunosuppression. Patient has a history of hematuria in the past and migraine headaches postsurgery considered tubal ligation on transplantation of the kidney Past Medical History Past Medical History NEUROLOGIC: Negative Neurological Disorders or Seizures CARDIAC: Negative Cardiac Disorders or Congestive Heart Failure RESPIRATORY: Negative Chronic Obstructive Pulmonary Disease (COPD), Asthma, Pneumonia, Tuberculosis or Sleep Apnea GASTROINTESTINAL: Positive Gastroesophageal Reflux Disease; Negative Gastrointestinal Disorders or Hepatitis GENITOURINARY: Positive Genitourinary Disorders and Dialysis; Negative Renal Disease REPRODUCTIVE: Positive Previous Pregnancies; Negative Pelvic Inflammatory Disease MUSCULOSKELETAL: Positive Musculoskeletal Disorders, Arthritis and Degenerative Disk Disease ENDOCRINE: Positive Diabetes Mellitus Type 2; Negative Endocrine Disorders or Diabetes Mellitus Type 1 HEMATOLOGIC: Negative Blood Disorders or Sickle Cell Disease OTHER HISTORY: Positive Blood Transfusions, Blood Transfusion Reaction, Organ Transplant and Chicken Pox; Negative Hospitalization, Autoimmune Disease, Shingles, Falls, Anesthesia Reactions, MRSA, Measles, Mumps or Cancer Family History FAMILY HISTORY: Positive Family Surgery and Family Anesthesia Reaction; Negative Family Psychiatric Problems, Family Respiratory Disorders, Family Cardiac Disorders, Family Gastrointestinal Problems or Family Cancer Surgical History SURGICAL: Positive Tubal Ligation, Section and Organ Transplant Social History SMOKING STATUS: Never smoker SUBSTANCE USE: does not use Meds Home Medications and Allergies Home Medications ?Medication ?Instructions ?Recorded ?Confirmed ?Type prednisone 5 mg tablet 5 mg PO QDAY 10/04/18 02/05/25 History tacrolimus 1 mg capsule, 3 mg PO Q12H 08/11/20 02/05/25 History immediate-release cinacalcet 30 mg tablet 30 mg PO QDAY 02/05/25 02/05/25 History magnesium 2 tab PO BID 02/05/25 02/05/25 History magnesium 100 mg tablet 400 mg PO QDAY 02/05/25 02/05/25 History metformin 500 mg tablet 500 mg PO BID 02/05/25 02/05/25 History sitagliptin phosphate 50 mg tablet 50 mg PO QDAY 02/05/25 02/05/25 History (Januvia) sodium bicarbonate 650 mg tablet 650 mg PO BID 02/05/25 02/05/25 History Allergies Allergy/AdvReac Type Severity Reaction Status Date / Time hydrocodone Allergy Mild Rash Verified 02/04/25 19:04 latex Allergy Mild Rash Verified 02/04/25 19:04 povidone-iodine Allergy Mild Rash Verified 02/04/25 19:04 Exam Vital Signs Temp Pulse Resp BP Pulse Ox O2 Del Method 97.3 F 78 20 111/73 98 Room Air 02/05/25 16:00 02/05/25 16:00 02/05/25 16:00 02/05/25 16:00 02/05/25 16:00 02/05/25 16:00 Narrative Exam Physical examination revealed a 44-year-old female who speaks only Swedish. Her vital signs are very stable with a heart rate of 78 Constitutional Constitutional: mild distress Routine Abdominal Exam Comments: Examination of the abdomen showed right lower quadrant incision from renal transplantation. Left lower quadrant tenderness is persistent upon Palpation of the abdomen. There is no peritoneal signs and abdomen is mostly soft except over the left lower quadrant. Even there she is not having rigidity or guarding. Bowel sounds are normoactive Routine Rectal Exam Comments: Deferred Routine Exam Comments: Deferred Results Results: Laboratory Laboratory Narrative: Patient's laboratory workup showed normal WBC today. However her lactate has been going up and down with 1.5-to 3.8 and again 5.2 and 2.7 Results: Imaging Imaging narrative: CT scan done without contrast shows diverticulitis of the sigmoid colon. Assessment & Plan Additional Assessment Additional comments: Impression: Possible diverticulitis of the descending colon Status post renal transplant on immunosuppression Diabetes mellitus, poorly controlled Plan Plan: I am not sure the patient had diverticulitis but that is most likely the cause for the left lower quadrant abdominal pain. The CT scan was done without contrast and it is very difficult to look at the inflamed bowel. I think patient should confirm this with a CT study with the contrast after discussing with the radiologist. Since the patient is on immunosuppression she may require elective resection of the sigmoid colon if she has had diverticulitis. This has to be confirmed with colonoscopy or barium enema and then plan resection preferably laparoscopic I have explained this to the and the patient. She also need to contact with the transplant people and mention about this diagnosis. Because of the change in the lactate that does not necessarily indicate that patient's condition is worse. Clinically she is comfortable and I would continue the IV antibiotic treatment and follow.
[2025-02-05] MEDS: ACETAMINOPHEN 325 MG TABLET 650 MG PO (19:23)
[2025-02-05 19:41] LABS: Lactate (Lactic Acid) 2.1 mMol/L (0.4-2.0)
[2025-02-05 19:58] LABS: Reflex Lactate? Y
[2025-02-05] MEDS: TACROLIMUS 1 MG PO (22:32)
[2025-02-05 22:39] LABS: Reflex Lactate? Y
[2025-02-05 22:58] LABS: Lactate (Lactic Acid) 1.5 mMol/L (0.4-2.0)
[2025-02-06] VITALS: BP 94/67; PULSE 71; RESP 18; TEMP 36.9; O2SAT 97
[2025-02-06 01:41] LABS: Lactate (Lactic Acid) 1.4 mMol/L (0.4-2.0)
[2025-02-06] MEDS: oxyCODONE/APAP 5/325 TABLET 1 TAB PO ×2 (02:33→08:46)
[2025-02-06 04:00] VITALS: BP 116/87; PULSE 67; RESP 18; TEMP 36.9; O2SAT 99
[2025-02-06] MEDS: PIPER/TAZO 3.375 GM PREMIX 3.375 GM/50 ML BAG IV (05:33)
[2025-02-06] MEDS: SIMETHICONE 80 MG CHEW PO ×2 (05:39→11:36)
[2025-02-06 05:41] LABS: Lactate (Lactic Acid) 1.6 mMol/L (0.4-2.0)
[2025-02-06 05:45] LABS: Basophils % (Auto) 0 % (0-2.5); Eosinophils # (Auto) 0.3 Thou/mm3 (0.0-0.5); Eosinophils % (Auto) 5 % (0-10); Hematocrit 31.2 % (36.0-46.0); Hemoglobin 10.4 g/dL (12.0-16.0); Immature Granulocytes % (Auto) 0 % (0-0); Immature Granulocytes Auto 0.02 Thou/mm3 (0.00-0.00); Lymphocytes # (Auto) 1.5 Thou/mm3 (1.0-4.8); Lymphocytes % (Auto) 21 % (10-50); Mean Corpuscular HGB Conc 33.3 g/dl (31.0-37.0); Mean Corpuscular Hemoglobin 31.7 pg (25.0-35.0); Mean Corpuscular Volume 95 fL (80-100); Monocytes # (Auto) 0.7 Thou/mm3 (0.0-0.8); Monocytes % (Auto) 10 % (0-12); Neutrophils # (Auto) 4.3 Thou/mm3 (1.8-7.7); Neutrophils % (Auto) 63 % (37-80); Nucleated Red Blood Cell % 0 /100 WBC (0); Platelet Count 179 Thou/mm3 (140-440); RDW Standard Deviation 46.4 fL (36.4-46.3); Red Blood Count 3.28 Miln/mm3 (4.00-5.20); White Blood Count 6.8 Thou/mm3 (3.6-11.0)
[2025-02-06 06:13] LABS: Alanine Aminotransferase 50 U/L (10-49); Albumin, Serum 3.5 gm/dL (3.5-5.0); Albumin/Globulin Ratio 1.5 (1.2-2.2); Alkaline Phosphatase 113 U/L (46-116); Anion Gap 10 (7-16); Aspartate Amino Transferase 31 U/L (0-34); BUN/Creatinine Ratio 11 Ratio (12-20); Bilirubin,Total 1.1 mg/dL (0.3-1.2); Blood Urea Nitrogen 11 mg/dL (9-23); Calcium (Corrected) 8.4 mg/dL (8.5-10.1); Carbon Dioxide 22.9 mMol/L (20.0-31.0); Chloride 108 mMol/L (98-107); Estimated Creatinine Clearance 57.4 mL/min (>60); Globulin 2.4 gm/dL (2.3-3.5); Glucose 130 mg/dL (74-106); Magnesium 1.2 mg/dL (1.6-2.6); Osmolality,Calculated 282 (275-295); Phosphorous 3.6 mg/dL (2.4-5.1); Potassium 3.7 mMol/L (3.4-5.1); Sodium 141 mMol/L (136-145); Total Protein 5.9 gm/dL (5.7-8.2); eGFR > 60 See Note
[2025-02-06 07:13] VITALS: BP 100/76; PULSE 67; RESP 12; TEMP 37; O2SAT 97
[2025-02-06] MEDS: SODIUM CHLORIDE 0.9% 1000 ML 1,000 ML 125 ML IV (07:27)
[2025-02-06] MEDS: predniSONE 5 MG TABLET PO (08:17)
[2025-02-06] MEDS: TACROLIMUS 1 MG PO (08:20)
[2025-02-06] MEDS: Magnesium Sulfate 4 GM Ivpb 4 GM/50 ML BAG IV (08:36)
--- NOTE | 2025-02-06 10:49 | PD.SURPROG ---
Documentation for date of: 02/06/25 Subjective Subjective Brief History: History of present illness revealed the patient has been sick for couple of days and came to the emergency room with abdominal pain in the lower quadrant of the abdomen. She did not have any nausea or vomiting and she has been having bowel movements. She described the pain as very severe and it was controlled after giving pain medicine. She had a similar episode in 2021 and she was told that she had diverticulitis but she has been doing reasonably well. Patient has a history of diabetes mellitus and she had undergone renal transplant in 2018 at [facility]. She is on immunosuppression. Patient has a history of hematuria in the past and migraine headaches postsurgery considered tubal ligation on transplantation of the kidney Narrative: The patient is doing well since surgery last night for acute cholecystitis Exam Vital Signs Temp Pulse Resp BP Pulse Ox O2 Del Method 98.6 F 67 12 100/76 97 Room Air 02/06/25 07:13 02/06/25 07:13 02/06/25 07:13 02/06/25 07:13 02/06/25 07:13 02/06/25 07:13 Her vital signs are normal and she tolerated clear liquids Routine Abdominal Exam Comments: Abdominal examination is negative Results Results: Laboratory Laboratory Narrative: Lab results are within normal limits Assessment & Plan Assessment Additional comments: Impression: Stable postoperative course following laparoscopic appendectomy for acute cholecystitis Plan Plan: We shall discharge the patient today and follow her up in my office next week
[2025-02-06] MEDS: INSULIN LISPRO (AdmeLOG) 1 UNIT/0.01 ML UNIT SC (11:37)
[2025-02-06 12:00] VITALS: BP 114/84; PULSE 78; RESP 14; TEMP 36.7; O2SAT 96
[2025-02-06] MEDS: ACETAMINOPHEN 325 MG TABLET 650 MG PO (12:51)
--- NOTE | 2025-02-06 13:05 | PC.NURSE ---
pt signed d/c paperwork and I gave her all of her own medication, waiting to see if daughter can get a note for work
--- NOTE | 2025-02-06 13:17 | ESDS_ITS ---
<Statement entered by Damaris Muñoz MD - 02/13/25 13:46> I reviewed above note and agree with findings and plans. I have also personally examined the patient with medicine team and went over assessment and plan with medical team including graphic design intern and resident physician. <Statement entered by Fallon Morillo MD - 02/06/25 13:34> I discussed with and supervised the graphic design intern physician who took care of this patient. I personally saw and examined the patient and discussed the assessment and plan with the entire medicine team, including my attending , I agree with the assessment and plan as documented below Fallon Morillo M.D. PGY-2 Disclaimer: Despite multiple revisions, due to the dictation software being used, the document bellow may not be free of grammatical errors including phonetic/typographic errors. However, this does not deter from our commitment to providing health care in the patient's best interest in mind. Planned Discharge Date 02/06/25 DS: Providers Provider Date of admission: 02/05/25 01:43 Primary care physician: Physician No Primary/Family Admitting Provider: Daljit Ashby MD Attending Provider on Admission: Damaris Muñoz MD Consults: 02/05/25 14:08 Consult to General Surgery Stat Comment: Diverticulitis with worsening lactic acidosis Consulting Provider: Kimberly Huerta Attending Provider on DC: Damaris Muñoz MD Discharging Provider: Oscar Huizar MD DS: Diagnosis Problem List Completed Was Problem List Reviewed/Reconciled?: Yes Hospital Course Hospital Course Hospital course: 44-year-old female with past medical history significant for renal transplant 7 years ago, diabetes mellitus type 2 and hemorrhoids presented to ED on 02/04/2025 with chief complaint of lower abdominal pain, admitted for acute diverticulitis seen on CT imaging without contrast. Patient treated with IV antibiotics, given full liquid diet which was well-tolerated by the patient. During course of stay patient developed lactic acidosis, which was treated with IV fluids. Patient showed symptomatic improvement, stable to be discharged. General surgery was consulted during stay, who recommended outpatient colonoscopy for confirmation of diverticulitis and possible elective colectomy. Patient medically stable and cleared for discharge. Discharge plan: You have been started on the following medications: - Flagyl 500 mg 3 times daily for 13 days - Ciprofloxacin 500 mg twice daily for 13 days Please continue taking on this as previously prescribed. Please follow-up with your primary doctor in 1-2 weeks. Please seek outpatient colonoscopy for confirmation diverticulosis in 2 months. Please return to the ED if you develop new or worsening symptoms. Diagnoses: #Acute diverticulitis #Lactic acidosis #S/p renal transplant #Diabetes mellitus type 2 Plan of care discussed with senior resident Dr. Morillo PGY?[address] Muñoz. Oscar Huizar MD PGY?1 Status at Discharge Overall status at discharge: patient is progressing back to baseline Time Spent with Patient Time attestation: Total time spent providing and/or coordinating discharge services: Time spent: Greater than 30 minutes Exam Vital Signs Temp Pulse Resp BP Pulse Ox O2 Del Method 98.0 F 78 14 114/84 96 Room Air 02/06/25 12:00 02/06/25 12:00 02/06/25 12:00 02/06/25 12:00 02/06/25 12:00 02/06/25 12:00 Narrative Exam PE: Gen: Well-developed and well-nourished. HEENT: NCAT, PERRLA, EOMI, MMM, anicteric conjunctivae. CVS: normal S1 and S2. RRR. No M/R/G. Resp: CTA B/L. No rhonchi, rales, crackles or wheezing. Abd: soft. Bilateral lower quadrant tenderness. Surgical scar right lower quadrant. MSK: Good ROM in BUE & BLE. No edema or rash. Neuro: CN II-XII grossly intact. Strength 5/5 in BUE & BLE. Alert and oriented x3. Psych: appropriate mood and affect. Discharge Plan Plan Patient Disposition: HOME (Self Care) Patient condition on transfer: Stable Care Plan Goals: You have been started on the following medications: - Flagyl 500 mg 3 times daily for 13 days - Ciprofloxacin 500 mg twice daily for 13 days Please continue taking on this as previously prescribed. Please follow-up with your primary doctor in 1-2 weeks. Please seek outpatient colonoscopy for confirmation diverticulosis in 2 months. Please return to the ED if you develop new or worsening symptoms. Prescriptions/Referrals Prescriptions/Med Rec: New metronidazole 500 mg tablet 500 mg PO TID 13 Days Qty: 39 0RF ciprofloxacin HCl 500 mg tablet 500 mg PO BID 13 Days Qty: 26 0RF Continued prednisone 5 mg Tablet 5 mg PO QDAY tacrolimus 1 mg Capsule 3 mg PO Q12H metformin 500 mg tablet 500 mg PO BID sodium bicarbonate 650 mg tablet 650 mg PO BID magnesium Tablet 2 tab PO BID magnesium 100 mg tablet 400 mg PO QDAY Januvia 50 mg tablet 50 mg PO QDAY cinacalcet 30 mg tablet 30 mg PO QDAY Referrals: No Primary/Family,Physician [Primary Care Provider] - Patient/Caregiver Discharge Instructions Discharge Activity: activity as tolerated Education Materials: Diverticulosis Diverticulitis Print Language: Polish Stand Alone Forms: [employer] Award Info., Patient Portal Info Letter Discharge Order Discharge Orders: Discharge (Routine); Ordered 02/06/25 Ordered By: Oscar Huizar Quality Discharge Quality Measures VTE prophylaxis
== END 2025-02-06 13:21 | disposition home or self-care (01) | DRG 392 ==
LOC: SERX 02-05 01:19 → SERHOLD 02-05 01:52 → S3NX 02-05 03:01
PROVIDERS: Physician Assistant; Student in an Organized Health Care Education/Training Program; Admitting Provider Internal Medicine; Emergency Provider Emergency Medicine; Visit Provider Internal Medicine
DX: K57.32 Diverticulitis of large intestine without perforation or abscess without bleeding (principal); E87.20 Acidosis, unspecified; Z94.0 Kidney transplant status; E11.65 Type 2 diabetes mellitus with hyperglycemia; Z79.60 Long term (current) use of unspecified immunomodulators and immunosuppressants; K21.9 Gastro-esophageal reflux disease without esophagitis; Z79.84 Long term (current) use of oral hypoglycemic drugs
CPT/HCPCS: 36415; 74018; 74176; 80053; 80061; 80069; 82803; 83036; 83605; 83690; 83735; 84100; 84443; 84703; 85025; 87040; 96365; 99285; J0744; J1815; J2543; J3475; J3490; J7030; J7050; J7512; A9270; J1836

== ENCOUNTER → 2025-03-01 | Outpatient (CLI) | payer MEDICARE, MEDICAID, SELFPAY ==
[2025-03-01 09:58] LABS: Collection Type, Urine Clean Catch; WBC,Urine 0 /hpf (0-5)
[2025-03-01 10:20] LABS: Basophils % (Auto) 0 % (0-2.5); Eosinophils # (Auto) 0.2 Thou/mm3 (0.0-0.5); Eosinophils % (Auto) 3 % (0-10); Hematocrit 34.7 % (36.0-46.0); Hemoglobin 11.6 g/dL (12.0-16.0); Immature Granulocytes % (Auto) 0 % (0-0); Immature Granulocytes Auto 0.02 Thou/mm3 (0.00-0.00); Lymphocytes # (Auto) 1.6 Thou/mm3 (1.0-4.8); Lymphocytes % (Auto) 29 % (10-50); Mean Corpuscular HGB Conc 33.4 g/dl (31.0-37.0); Mean Corpuscular Hemoglobin 31.4 pg (25.0-35.0); Mean Corpuscular Volume 94 fL (80-100); Monocytes # (Auto) 0.6 Thou/mm3 (0.0-0.8); Monocytes % (Auto) 10 % (0-12); Neutrophils # (Auto) 3.1 Thou/mm3 (1.8-7.7); Neutrophils % (Auto) 57 % (37-80); Nucleated Red Blood Cell % 0 /100 WBC (0); Platelet Count 173 Thou/mm3 (140-440); RDW Standard Deviation 45.9 fL (36.4-46.3); White Blood Count 5.4 Thou/mm3 (3.6-11.0)
[2025-03-01 10:34] LABS: Amorphous Crystals,Urine Present (Absent); Bilirubin,Urine Negative (Negative); Blood,Urine Negative (Negative); Clarity,Urine Turbid (Clear/Hazy); Color,Urine Yellow (Lt Yel-Yel); Culture Indicated,Urine Not Indicated; Glucose, Urine Negative (Negative); Ketones,Urine Negative (Negative); Leukocyte Esterase,Urine Negative (Negative); Nitrite,Urine Negative (Negative); PH,Urine 7.5 (5.0-7.0); Protein,Urine Trace (Neg - Trace); RBC,Urine 5 /hpf (0-3); Squamous Epithelial Cell,Urine 6 /hpf (0-5); Urobilinogen,Urine Negative mg/dL (0.0-1.0)
[2025-03-01 10:37] LABS: Glucose Estimated Average 163 mg/dL (80-131); Hemoglobin A1C 7.3 % Hgb (4.8-6.0)
[2025-03-01 10:48] LABS: Albumin, Serum 4.1 gm/dL (3.5-5.0); Anion Gap 9 (7-16); BUN/Creatinine Ratio 13 Ratio (12-20); Blood Urea Nitrogen 16 mg/dL (9-23); Calcium 7.8 mg/dL (8.3-10.6); Calcium (Corrected) 7.8 mg/dL (8.5-10.1); Carbon Dioxide 26.7 mMol/L (20.0-31.0); Chloride 107 mMol/L (98-107); Creatinine (Component) 1.2 mg/dL (0.6-1.3); Glucose 151 mg/dL (74-106); Osmolality,Calculated 289 (275-295); Phosphorous 3.8 mg/dL (2.4-5.1); Potassium 3.7 mMol/L (3.4-5.1); Sodium 143 mMol/L (136-145); eGFR 58 See Note
[2025-03-08 06:36] LABS: Tacrolimus,highly sensitive* 5.7 mcg/L (5.0-20.0)
== END | disposition home or self-care (01) ==
PROVIDERS: PCP Internal Medicine Nephrology; Referring Provider Internal Medicine Nephrology; Visit Provider Internal Medicine Nephrology
DX: Z94.0 Kidney transplant status (principal); E11.9 Type 2 diabetes mellitus without complications; N39.0 Urinary tract infection, site not specified
CPT/HCPCS: 36415; 80069; 80197; 81001; 83036; 85025

== ENCOUNTER → 2025-04-06 | Outpatient (CLI) | payer MEDICARE, MEDICAID, SELFPAY ==
[2025-04-06 08:57] LABS: Collection Type, Urine Clean Catch; RBC,Urine 0 /hpf (0-3); WBC,Urine 0 /hpf (0-5)
[2025-04-06 09:15] LABS: Basophils % (Auto) 0 % (0-2.5); Eosinophils # (Auto) 0.1 Thou/mm3 (0.0-0.5); Eosinophils % (Auto) 1 % (0-10); Hematocrit 35.9 % (36.0-46.0); Hemoglobin 12.8 g/dL (12.0-16.0); Immature Granulocytes % (Auto) 0 % (0-0); Immature Granulocytes Auto 0.02 Thou/mm3 (0.00-0.00); Lymphocytes # (Auto) 1.9 Thou/mm3 (1.0-4.8); Lymphocytes % (Auto) 30 % (10-50); Mean Corpuscular HGB Conc 35.7 g/dl (31.0-37.0); Mean Corpuscular Hemoglobin 30.9 pg (25.0-35.0); Mean Corpuscular Volume 87 fL (80-100); Monocytes # (Auto) 0.6 Thou/mm3 (0.0-0.8); Monocytes % (Auto) 9 % (0-12); Neutrophils # (Auto) 3.8 Thou/mm3 (1.8-7.7); Neutrophils % (Auto) 60 % (37-80); Nucleated Red Blood Cell % 0 /100 WBC (0); Platelet Count 175 Thou/mm3 (140-440); RDW Standard Deviation 39.5 fL (36.4-46.3); Red Blood Count 4.14 Miln/mm3 (4.00-5.20); White Blood Count 6.4 Thou/mm3 (3.6-11.0)
[2025-04-06 09:27] LABS: Bilirubin,Urine Negative (Negative); Blood,Urine Negative (Negative); Clarity,Urine Clear (Clear/Hazy); Color,Urine Yellow (Lt Yel-Yel); Glucose, Urine Negative (Negative); Ketones,Urine Trace (Negative); Leukocyte Esterase,Urine Negative (Negative); Nitrite,Urine Negative (Negative); PH,Urine 5.5 (5.0-7.0); Protein,Urine Negative (Neg - Trace); Specific Gravity,Urine 1.024 (1.001-1.035); Squamous Epithelial Cell,Urine 4 /hpf (0-5); Urobilinogen,Urine Negative mg/dL (0.0-1.0)
[2025-04-06 09:27] LABS: Glucose Estimated Average 177 mg/dL (80-131); Hemoglobin A1C 7.8 % Hgb (4.8-6.0)
[2025-04-06 09:46] LABS: Albumin, Serum 4.1 gm/dL (3.5-5.0); Anion Gap 12 (7-16); BUN/Creatinine Ratio 16 Ratio (12-20); Blood Urea Nitrogen 21 mg/dL (9-23); Carbon Dioxide 24.5 mMol/L (20.0-31.0); Chloride 105 mMol/L (98-107); Creatinine (Component) 1.3 mg/dL (0.6-1.3); Glucose 168 mg/dL (74-106); Osmolality,Calculated 288 (275-295); Phosphorous 2.1 mg/dL (2.4-5.1); Sodium 141 mMol/L (136-145); eGFR 52 See Note
[2025-04-12 06:40] LABS: Tacrolimus,highly sensitive* 11.5 mcg/L (5.0-20.0)
== END | disposition home or self-care (01) ==
PROVIDERS: PCP Internal Medicine Nephrology; Referring Provider Internal Medicine Nephrology; Visit Provider Internal Medicine Nephrology
DX: E11.9 Type 2 diabetes mellitus without complications (principal); Z94.0 Kidney transplant status
CPT/HCPCS: 36415; 80069; 80197; 81001; 83036; 85025

== ENCOUNTER → 2025-04-19 | Outpatient (CLI) | payer MEDICARE, MEDICAID, SELFPAY ==
[2025-04-25 06:48] LABS: Tacrolimus,highly sensitive* 5.9 mcg/L (5.0-20.0)
== END | disposition home or self-care (01) ==
LOC: COPL 08:36
PROVIDERS: PCP Family Medicine; Referring Provider Internal Medicine Nephrology; Visit Provider Internal Medicine Nephrology
DX: Z94.0 Kidney transplant status (principal)
CPT/HCPCS: 36415; 80197

== ENCOUNTER 2025-07-02 11:10 | Day surgery (SDC) | payer OTHER, SELFPAY ==
[2025-07-02] VITALS (10 sets, daily range): BP systolic 111–145; BP diastolic 70–98; PULSE 72–107; RESP 12–19; TEMP 36.4–36.8; O2SAT 94–100; BMI 22.4
[2025-07-02 10:59] LABS: HCG Qualitative,Urine Negative
[2025-07-02] MEDS: SODIUM CHLORIDE 0.9% 500 ML 500 ML 20 ML IV (12:53)
[2025-07-02] MEDS: fentaNYL CIT INJ 50 mCg/ML AMP 2ML (ASD USE ONLY) IVP (12:59)
[2025-07-02] MEDS: MIDAZOLAM INJ 1 MG/ML VIAL 2 ML (ASD USE ONLY) 2 MG IVP (12:59)
== END 2025-07-02 13:40 | disposition home or self-care (01) ==
PROVIDERS: PCP Family Medicine; Referring Provider Specialist; Visit Provider Specialist
PROC: 0DBE8ZX Excision of Large Intestine, Via Natural or Artificial Opening Endoscopic, Diagnostic (ICD-10-PCS; CPT 45380; principal; 2025-07-02 12:15)
DX: Z12.11 Encounter for screening for malignant neoplasm of colon (principal); K64.9 Unspecified hemorrhoids; K57.30 Diverticulosis of large intestine without perforation or abscess without bleeding
CPT/HCPCS: G0121; 81025; A4649; J1200; J2250; J3010; J7999

== ENCOUNTER 2025-08-23 23:07 | Emergency (ER) | payer OTHER, MEDICAID, SELFPAY ==
--- NOTE | 2025-08-23 23:15 | EKG_ITS ---
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
[2025-08-23 23:19] VITALS: BMI 21.9
[2025-08-23 23:29] VITALS: BP 145/98; PULSE 74; RESP 18; TEMP 36.9; O2SAT 98
--- NOTE | 2025-08-23 23:47 | XR_ITS ---
EXAMINATION: PA chest single view TECHNIQUE: Upright PA chest single view Date and time: August 24, 2025, 0017 hours, comparison November 13, 2021 INDICATIONS: Shortness of breath weakness dizziness today FINDINGS: Normal heart size The lungs are clear. The osseous structures are intact IMPRESSION: No active disease
--- NOTE | 2025-08-23 23:48 | PD.EDRME ---
Rapid Medical Screening Exam ON LICENSE OF [facility] Arrival date/time: 08/23/25 23:07 44F with history of DM (metformin) and kidney transplant presents to ED with several days of increased thirst, dizziness, and fatigue, as well as intermittent CP/SOB. Patient also had some subjective fevers/chills, but denies URI symptoms, dysuria, and pain. Chief Complaint: Dizziness Vital signs: Vital Signs Temperature 98.5 F 08/23/25 23:29 Pulse Rate 74 08/23/25 23:29 Respiratory Rate 18 08/23/25 23:29 Blood Pressure 145/98 H 08/23/25 23:29 Pulse Oximetry (%) 98 08/23/25 23:29 Oxygen Delivery Method Room Air 08/23/25 23:29 Exam: Normal WOB. Speech normal. Clinical Impression: DKA/HHS vs hyperglycemia vs URI vs UTI vs ANT vs dizziness
[2025-08-24 00:13] LABS: Base Excess, Venous -2 (-3-3); O2 Saturation, Venous 55 % (96-97); PCO2, Venous 45 mmHg (36-56); PO2, Venous 30 mmHg (15-58); pH, Venous 7.34 (7.33-7.66)
[2025-08-24 00:38] LABS: Collection Type, Urine Clean Catch; HCG Qualitative,Urine Negative
[2025-08-24 00:39] LABS: B-Type Natriuretic Peptide 39 pg/mL (0-100)
[2025-08-24 00:40] LABS: Bilirubin,Urine Negative (Negative); Blood,Urine Negative (Negative); Clarity,Urine Clear (Clear/Hazy); Color,Urine Colorless (Lt Yel-Yel); Culture Indicated,Urine Not Indicated; Glucose, Urine 4+ (Negative); Ketones,Urine Negative (Negative); Leukocyte Esterase,Urine Negative (Negative); Nitrite,Urine Negative (Negative); PH,Urine 6.5 (5.0-7.0); Protein,Urine Negative (Neg - Trace); RBC,Urine 6 /hpf (0-3); Specific Gravity,Urine 1.029 (1.001-1.035); Squamous Epithelial Cell,Urine 4 /hpf (0-5); Urobilinogen,Urine Negative mg/dL (0.0-1.0); WBC,Urine < 1 /hpf (0-5)
[2025-08-24 00:43] LABS: Beta Hydroxybutyrate 0.1 mmol/L (<0.6)
[2025-08-24 00:45] LABS: Basophils # (Auto) 0.0 Thou/mm3 (0.0-0.2); Basophils % (Auto) 1 % (0-2.5); Eosinophils # (Auto) 0.1 Thou/mm3 (0.0-0.5); Eosinophils % (Auto) 2 % (0-10); Hematocrit 34.7 % (36.0-46.0); Hemoglobin 12.1 g/dL (12.0-16.0); Immature Granulocytes Auto 0.01 Thou/mm3 (0.00-0.00); Lymphocytes # (Auto) 1.6 Thou/mm3 (1.0-4.8); Lymphocytes % (Auto) 25 % (10-50); Mean Corpuscular HGB Conc 34.9 g/dl (31.0-37.0); Mean Corpuscular Hemoglobin 30.6 pg (25.0-35.0); Mean Corpuscular Volume 88 fL (80-100); Monocytes # (Auto) 0.7 Thou/mm3 (0.0-0.8); Monocytes % (Auto) 12 % (0-12); Neutrophils # (Auto) 3.8 Thou/mm3 (1.8-7.7); Neutrophils % (Auto) 61 % (37-80); Nucleated Red Blood Cell # 0.00 Thou/mm3 (0.00-0.00); Nucleated Red Blood Cell % 0 /100 WBC (0); Platelet Count 133 Thou/mm3 (140-440); RDW Standard Deviation 39.6 fL (36.4-46.3); Red Blood Count 3.96 Miln/mm3 (4.00-5.20); White Blood Count 6.2 Thou/mm3 (3.6-11.0)
[2025-08-24 00:54] LABS: Alanine Aminotransferase 83 U/L (10-49); Albumin, Serum 4.3 gm/dL (3.5-5.0); Albumin/Globulin Ratio 1.7 (1.2-2.2); Alkaline Phosphatase 185 U/L (46-116); Anion Gap 9 (7-16); Aspartate Amino Transferase 92 U/L (0-34); BUN/Creatinine Ratio 10 Ratio (12-20); Bilirubin,Total 0.6 mg/dL (0.3-1.2); Blood Urea Nitrogen 18 mg/dL (9-23); Calcium 10.5 mg/dL (8.3-10.6); Calcium (Corrected) 10.5 mg/dL (8.5-10.1); Carbon Dioxide 22.0 mMol/L (20.0-31.0); Chloride 97 mMol/L (98-107); Creatinine (Component) 1.8 mg/dL (0.6-1.3); Estimated Creatinine Clearance 31.9 mL/min (>60); Globulin 2.6 gm/dL (2.3-3.5); Magnesium 1.4 mg/dL (1.6-2.6); Phosphorous 2.5 mg/dL (2.4-5.1); Potassium 4.2 mMol/L (3.4-5.1); Sodium 128 mMol/L (136-145); Total Protein 6.9 gm/dL (5.7-8.2); Troponin I < 0.020 ng/mL (0.0-0.045); eGFR 35 See Note
[2025-08-24] MEDS: RINGERS LACTATED 1000 ML 1,000 ML 999 ML IV (00:59)
[2025-08-24 01:15] LABS: Osmolality,Calculated 293 (275-295)
[2025-08-24 01:18] VITALS: BP 127/86; PULSE 65; RESP 18; TEMP 36.8; O2SAT 98
[2025-08-24 01:30] LABS: Glucose 732 mg/dL (74-106)
--- NOTE | 2025-08-24 01:32 | PD.EDDIZZY ---
ED Dizzyness RME/HPI General Chief Complaint: Dizziness Stated Complaint: SOB, DIZZINESS, INCREASE THRIST, FATIGUED Arrival date/time: 08/23/25 23:07 RME / HPI RME / HPI Narrative: 08/23/25 23:07 44F with history of DM (metformin) and kidney transplant presents to ED with several days of increased thirst, dizziness, and fatigue, as well as intermittent CP/SOB. Patient also had some subjective fevers/chills, but denies URI symptoms, dysuria, and pain. Dr. Hull?s Main ED Evaluation: 44yo female with a history of non-insulin dependent DM, kidney transplant (2018) presents to the ED for complaints of dizziness, fatigue, and increased thirst for the last few days. Patient states she has been eating more carbohydrates than usual for the last one week. Patient denies any N/V/D, fever, chills, abdominal pain, or any other associated symptoms. Related Data Home Medications ?Medication ?Instructions ?Recorded ?Confirmed prednisone 5 mg tablet 5 mg PO QDAY 10/04/18 07/02/25 tacrolimus 1 mg capsule, 3 mg PO Q12H 08/11/20 07/02/25 immediate-release metformin 500 mg tablet 500 mg PO BID 02/05/25 07/02/25 Previous Rx's ?Medication ?Instructions ?Recorded glipizide 5 mg tablet 5 mg PO QDAY #30 tabs 08/24/25 Allergies Allergy/AdvReac Type Severity Reaction Status Date / Time hydrocodone Allergy Mild Rash Verified 08/23/25 23:14 latex Allergy Mild Rash Verified 08/23/25 23:14 povidone-iodine Allergy Mild Rash Verified 08/23/25 23:14 Review of Systems Review of Systems Systems Reviewed: All systems reviewed, normal except as documented Past Medical History Past Medical History NEUROLOGIC: Negative Neurological Disorders or Seizures CARDIAC: Negative Cardiac Disorders or Congestive Heart Failure RESPIRATORY: Negative Chronic Obstructive Pulmonary Disease (COPD), Asthma, Pneumonia, Tuberculosis or Sleep Apnea GASTROINTESTINAL: Positive Diverticulosis and Gastroesophageal Reflux Disease; Negative Gastrointestinal Disorders or Hepatitis GENITOURINARY: Positive Genitourinary Disorders; Negative Renal Disease or Dialysis REPRODUCTIVE: Positive Previous Pregnancies; Negative Pelvic Inflammatory Disease MUSCULOSKELETAL: Negative Musculoskeletal Disorders, Arthritis or Degenerative Disk Disease ENDOCRINE: Positive Diabetes Mellitus Type 2; Negative Endocrine Disorders or Diabetes Mellitus Type 1 HEMATOLOGIC: Negative Blood Disorders or Sickle Cell Disease OTHER HISTORY: Positive Organ Transplant and Chicken Pox; Negative Hospitalization, Autoimmune Disease, Shingles, Falls, Blood Transfusions, Anesthesia Reactions, MRSA, Measles, Mumps or Cancer Family History FAMILY HISTORY: Positive Family Surgery and Family Anesthesia Reaction; Negative Family Psychiatric Problems, Family Respiratory Disorders, Family Cardiac Disorders, Family Gastrointestinal Problems or Family Cancer Surgical History SURGICAL: Positive Tubal Ligation, Section and Organ Transplant Social History SMOKING STATUS: Never smoker SUBSTANCE USE: does not use ED Exam Narrative Physical exam: Generally patient is alert and in no obvious distress, heart regular rate and rhythm, lungs clear to auscultation equal bilaterally, abdomen soft bowel sounds present nondistended nontender, skin is warm pale and dry, neurologic exam shows Shwetha Coma Scale of 15 Course Quality Measures none Orders Category Date Time Status Bedside COVID-19 Antigen Test NOW Care 08/23/25 23:47 Active Blood glucose [Bedside Blood Glucose] NOW Care 08/23/25 23:15 Active EKG (ED ONLY) *Do not use* NOW Care 08/23/25 23:15 Completed Insert IV NOW Care 08/23/25 23:47 Active EKG (ED Only) Stat Exams 08/23/25 23:15 Draft XR chest 1V portable Stat Exams 08/23/25 23:47 Taken B-Type Natriuretic Peptide Stat Lab 08/23/25 23:47 Completed Beta Hydroxybutyrate Stat Lab 08/23/25 23:47 Completed CBC Stat Lab 08/23/25 23:47 Completed Comprehensive Metabolic Panel Stat Lab 08/23/25 23:47 Completed HCG Qualitative,Urine Stat Lab 08/23/25 23:47 Completed Magnesium Stat Lab 08/23/25 23:47 Completed Phosphorous Stat Lab 08/23/25 23:47 Completed Troponin I Stat Lab 08/23/25 23:47 Completed Urinalysis, C/S if Indicated Stat Lab 08/23/25 23:47 Completed VBG [Venous Blood Gas] Stat Lab 08/23/25 23:47 Completed Insulin Regular Med 08/24/25 01:45 Discontinued 10 unit IV X1 ONE Ringers Lactated 1000 ml [Lactated Ringers] 1,000 ml Med 08/23/25 23:47 Discontinued IV 999 mls/hr Vital Signs Vital signs: Vital Signs Temperature 98.5 F 08/23/25 23:29 Pulse Rate 74 08/23/25 23:29 Respiratory Rate 18 08/23/25 23:29 Blood Pressure 145/98 H 08/23/25 23:29 Pulse Oximetry (%) 98 08/23/25 23:29 Oxygen Delivery Method Room Air 08/23/25 23:29 Dizziness [facility] Narrative [facility] Narrative:: Scribe Attestation: 08/24/25 - Rocio Pino am scribing for and in the presence of Dr. Hull. Patient has a degree of renal insufficiency. Her renal transplant was in 2019. Blood sugar 723. She takes metformin 1000 mg twice a day. No insulin and no other oral antihyperglycemic's. She is not in diabetic ketoacidosis. Patient was hydrated with a liter of lactated Ringer's. She was given 10 units of regular insulin IV. I will start the patient on 5 mg a day of glipizide. She is to continue the metformin. Her blood sugars are high because she has been eating a great deal of carbohydrates over the last couple of weeks. This was because of a certain diet the patient was on. Patient was counseled on the need to stop eating so much carbohydrates. Continue the antirejection medications including the prednisone. Continue the metformin. Glipizide as prescribed. Patient data External records reviewed:: [facility] previous records (Per chart review, patient was admitted here on 02/04/25 for acute diverticulitis.) Clinical information provided by:: patient Social determinants that could affect healthcare access:: none Patient has the following chronic illnesses:: DM How is presenting disease/condition affected by chronic disease/condition?: uneffected by Evaluation data The following diagnostics were reviewed and interpreted by me:: lab results, radiology exam(s) and EKG tracing(s) Lab and/or radiology exams considered but not ordered:: none Interpretation Summary: See [facility] Medications / Prescriptions Medications or Prescriptions considered but not ordered:: none Medication administrations:: Medication Administration History Discontinued Medications Lactated Ringer's (Lactated Ringers) 1,000 mls @ 999 mls/hr IV .Q1H1M ONE Stop: 08/24/25 00:47 Last Infusion: 08/24/25 02:05 Dose: Infused Documented By: Admin: 08/24/25 00:59 Dose: 999 mls/hr Documented By: PJ Insulin Human Regular (Insulin Hum Regular 1 Unit/0.01 Ml (Per Unit)) 10 unit IV X1 ONE Stop: 08/24/25 01:46 Last Admin: 08/24/25 01:57 Dose: 10 unit Documented By: PJ Co-signed By: KIA see above Consultations Consultation(s) initiated? (list below): No Diagnosis Dizziness Differential Diagnosis: other (See MDM) Most likely diagnosis given after review of the tests above:: see clinical impression below Admission Indicated Admission indicated?: not indicated Admission Request Was there a request for admission?: No Disposition Plan Disposition Plan: Discharge Discharge Attestation Discharge Attestation: The patient and all family members were given an opportunity to ask questions and understood the discharge instructions. Discharge instructions specifically effects, indications for sooner follow up or return to the emergency department, and the expected course of current diagnosis. Patient condition: Stable Discharge Plan Plan Patient Disposition: HOME (Self Care) Prescriptions/Referrals Prescriptions/Med Rec: New glipizide 5 mg tablet 5 mg PO QDAY Qty: 30 0RF No Action prednisone 5 mg Tablet 5 mg PO QDAY tacrolimus 1 mg Capsule 3 mg PO Q12H metformin 500 mg tablet 500 mg PO BID Referrals: No Primary/Family,Physician [Primary Care Provider] - In 1 week Problem List Clinical Impression: Hyperglycemia Patient/Caregiver Discharge Instructions Education Materials: ED Diabetes with High Blood Sugar Additional Instructions: Decrease your carbohydrate intake. Continue all current medications. Glipizide as prescribed. Follow-up with your doctor. Return to ER as needed or if condition worsens. Print Language: Malaysian Stand Alone Forms: [employer] Award Info., Patient Portal Info Letter
[2025-08-24] MEDS: INSULIN HUM REGULAR 1 UNIT/0.01 ML (PER UNIT) 10 UNIT IV (01:57)
== END 2025-08-24 03:02 | disposition home or self-care (01) ==
PROVIDERS: Physician Assistant; Emergency Provider Emergency Medicine
DX: E11.65 Type 2 diabetes mellitus with hyperglycemia (principal); E11.69 Type 2 diabetes mellitus with other specified complication; Z79.84 Long term (current) use of oral hypoglycemic drugs
CPT/HCPCS: 36415; 71045; 80053; 81001; 81025; 82010; 82803; 83735; 83880; 84100; 84484; 85025; 87811; 93005; 96360; 99283; J1815; J7120